=== PATIENT | female | born 1985 | race Caucasian/White ===

== ENCOUNTER 2018-08-18 17:01 | Emergency (ER) | payer OTHER, SELFPAY ==
[~2018-08-18 17:01] MED LIST: ISOVUE-370 76%-LOCM 1 ML ONE
[2018-08-18 18:40] LABS: #Basophils 0.1 thou/uL (0.0-0.2); #Eosinphils 0.1 thou/uL (0.0-0.7); #Lymphocytes 1.6 thou/uL (1.20-3.40); #Monocytes 0.4 thou/uL (0.11-0.59); %Basophils 1.3 % (0.0-1.0); %Eosinophils 1.8 % (0.0-10.0); %Lymphocytes 26.1 % (21.0-51.0); %Monocytes 5.9 % (0.0-10.0); %Neutrophils 64.9 % (42.0-75.0); Hemoglobin 11.2 g/dL (12.0-16.0); Mean Corpuscular HGB CONC 31.1 g/dL (32.0-36.0); Mean Corpuscular Hemoglobin 25.6 pg (27.0-31.0); Mean Corpuscular Volume 82.2 fL (78.0-98.0); Mean Platelet Volume 7.6 fL (7.4-10.4); Platelet Count 273 thou/uL (130-400); RBC Distribution Width 16.9 % (11.5-14.5); Red Blood Cell (RBC) Count 4.37 mill/uL (4.20-5.40); White Blood Cell (WBC) Count 6.2 thou/uL (4.8-10.8)
[2018-08-18 19:05] LABS: ALT (SGPT) 20 U/L (8-55); AST (SGOT) 16 U/L (5-34); Albumin 3.8 g/dL (3.5-5.0); Alkaline Phosphatase 97 U/L (40-150); Anion Gap 10 mmol/L (10-20); BUN (Urea Nitrogen) 14 mg/dL (7.0-18.7); Bilirubin, Total 0.3 mg/dL (0.2-1.2); Calc. Creatinine Clearance 0 mL/min (70-130); Carbon Dioxide 29 mmol/L (22-29); Chloride 105 mmol/L (98-107); Estimated GFR-MDRD 80; Globulin 3.8 g/dL (2.4-3.5); Glucose 110 mg/dL (70-105); Potassium 3.4 mmol/L (3.5-5.1); Protein, Total 7.6 g/dL (6.0-8.3); Sodium 141 mmol/L (136-145)
[2018-08-18 20:26] LABS: PTT 28.2 SEC (22.9-36.1); Prothrombin Time 12.9 SEC (12.0-14.7)
[2018-08-18 20:34] LABS: CKMB 0.5 ng/mL (0-6.6); Troponin I Less than 0.010 ng/mL (< 0.028)
--- NOTE | 2018-08-18 22:05 | CT ---
CONTRAST ENHANCED CT IMAGES ABDOMEN AND PELVIS 08/18/18 HISTORY: Rectal bleeding. Contrast enhanced CT images of the abdomen and pelvis is obtained after administration of IV contrast . Unfortunately oral contrast was not given. This does decrease the sensitivity for detection of GI p athology. The lung bases are unremarkable. No evidence of free intraperitoneal air seen. The liver, spleen, and pancreas are unremarkable. The g allbladder has been surgically removed. The adrenal glands are unremarkable. The right and left kidneys are unremarkable. No dilated loops of small bowel seen. The colon contains moderate amount of stool. The uterus is somewhat heterogeneous in appearance. There may be some fullness in the region of the c ervix. Correlate with clinical exam. Cervical pathology cannot be excluded. IMPRESSION: Fullness in the region of the uterine cervix. Correlate with clinical exam. POS: [facility]
--- NOTE | 2018-08-18 22:39 | CT ---
CTA CHEST 08/18/18 HISTORY: History of pulmonary emboli, dyspnea. Contrast enhanced CTA of the chest is performed. Comparison made to a previous exam from 08/23/13. Contrast enhanced CTA chest is obtained. 2D and 3D reconstruction images performed on an independent 3D workstation. The lung parenchyma is unremarkable with no evidence of masses or lesions seen. No evidence of pleural or pericardial effusions seen. No evidence of filling defects seen in the pulmonary arteries to suggest pulmonary emboli. The liver and spleen in the visualized portions is unremarkable. The mediastinum demonstrates no evidence of significant lymphadenopathy; however, there is a newly de veloped approximately 2.8 x 1.9 cm oval shaped density. Hounsfield measurement of approximately 13. T his may represent a small cyst in the superior mediastinal/aortopulmonary window region or may repres ent a possible developing mass. This area was not present on the previous exam. IMPRESSION: Newly developed left periaortic fluid density lesion, unknown clinical significance. This was not pre sent on the previous comparison CTA chest form 2012. POS: [facility]
[2018-08-18] MEDS ORDERED: Acetaminophen 500 MG TAB ONE (22:48)
[2018-08-18] MEDS ORDERED: Morphine 4 MG/ML VIAL ONE (22:48)
[2018-08-19] MEDS ORDERED: cefTRIAXone\\ROCEPHIN 1 GM VIAL ONE (00:01)
[2018-08-19] MEDS ORDERED: Azithromycin 250 MG TAB ONE (00:01)
[2018-08-21 21:00] LABS: Chlamydia by PCR Inconclusive (NotDetected); GC by PCR Inconclusive (NotDetected)
== END 2018-08-19 00:27 | disposition home or self-care (01) ==
LOC: ERS 17:01
DX: K64.8 Other hemorrhoids (principal); K64.4 Residual hemorrhoidal skin tags
CPT/HCPCS: 36415; 71275; 74177; 80053; 82553; 84484; 84702; 85025; 85610; 85730; 86850; 86900; 86901; 87480; 87491; 87510; 87591; 87660; 93005; 96374; 96375; 96376; J0696; J2270

== ENCOUNTER 2018-09-07 16:37 | Emergency (ER) | payer SELFPAY ==
[2018-09-07 17:02] LABS: Bacteria/HPF Rare-Few HPF (None Seen); Hyaline Casts/LPF 0-3 HYALINE CAST LPF (0-3 Hyaline); Pathc Cast-AUWi Flag 0.43 (0-2.49); Squamous Epithelial 0-3 HPF (0-3)
[2018-09-07 17:05] LABS: Yeast-AUWi Flag 412.4 (0-25.0)
[2018-09-07 17:06] LABS: Clarity Hazy (Clear); Leukocyte Unable to Interpret (Negative); Nitrite Unable to Interpret (Negative); Protein, Urine (Dipstick) Unable to Interpret mg/dL (Neg-Trace); Specific Gravity, Urine 1.022 (1.002-1.036)
[2018-09-07 17:07] LABS: Bilirubin Unable to Interpret (Negative); Blood, Urine Unable to Interpret (Negative); Glucose, Urine (Dipstick) Unable to Interpret mg/dL (Negative); Urobilinogen UNABLE TO INTERPRET mg/dL (0.2-1.0)
[2018-09-07 17:13] LABS: Yeast-All Forms None Seen HPF (None Seen)
[2018-09-07 17:28] LABS: Pregnancy Test - Urine (BHCG) Negative (Negative); Pregu Control Background? CLEAR/WHITE (CLR/WHITE); Pregu Control Bar Appear? YES (CONTROL BAR); Specific Gravity 1.022 (1.002-1.036)
[2018-09-07] MEDS ORDERED: HYDROcodone/Acetaminophen 10/325 mg Tablet ONE (17:31)
== END 2018-09-07 18:14 | disposition home or self-care (01) ==
LOC: ERS 16:37
DX: N39.0 Urinary tract infection, site not specified (principal)
CPT/HCPCS: 81003; 81015; 81025; 99283

== ENCOUNTER 2018-10-10 08:38 | Emergency (ER) | payer OTHER, SELFPAY ==
[2018-10-10] MEDS ORDERED: Acetaminophen 500 MG TAB ONE (08:55)
[2018-10-10 09:05] LABS: #Eosinphils 0.1 thou/uL (0.0-0.7); #Lymphocytes 1.5 thou/uL (1.20-3.40); #Monocytes 0.5 thou/uL (0.11-0.59); #Neutrophils 3.4 thou/uL (1.40-6.50); %Basophils 0.3 % (0.0-1.0); %Eosinophils 1.9 % (0.0-10.0); %Lymphocytes 26.4 % (21.0-51.0); %Monocytes 9.5 % (0.0-10.0); %Neutrophils 61.9 % (42.0-75.0); Hemoglobin 12.2 g/dL (12.0-16.0); Mean Corpuscular HGB CONC 31.5 g/dL (32.0-36.0); Mean Corpuscular Hemoglobin 27.4 pg (27.0-31.0); Mean Corpuscular Volume 86.9 fL (78.0-98.0); Mean Platelet Volume 6.2 fL (7.4-10.4); Platelet Count 260 thou/uL (130-400); RBC Distribution Width 14.7 % (11.5-14.5); Red Blood Cell (RBC) Count 4.46 mill/uL (4.20-5.40); White Blood Cell (WBC) Count 5.5 thou/uL (4.8-10.8)
[2018-10-10 09:14] LABS: BHCG - Serum Negative (NEGATIVE); Pregs Control Background? CLEAR/WHITE (CLR/WHITE); Pregs Control Bar Appear? YES (CONTROL BAR)
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
[2018-10-10 09:27] LABS: ALT (SGPT) 49 U/L (8-55); AST (SGOT) 18 U/L (5-34); Albumin 3.8 g/dL (3.5-5.0); Alkaline Phosphatase 116 U/L (40-150); Anion Gap 11 mmol/L (10-20); BUN (Urea Nitrogen) 15 mg/dL (7.0-18.7); Bilirubin, Total 0.3 mg/dL (0.2-1.2); Calc. Creatinine Clearance 0 mL/min (70-130); Calcium 8.6 mg/dL (7.8-10.44); Carbon Dioxide 23 mmol/L (22-29); Chloride 106 mmol/L (98-107); Estimated GFR-MDRD 83; Globulin 3.4 g/dL (2.4-3.5); Glucose 97 mg/dL (70-105); Lipase 46 U/L (8-78); Potassium 3.9 mmol/L (3.5-5.1); Protein, Total 7.2 g/dL (6.0-8.3); Sodium 136 mmol/L (136-145)
--- NOTE | 2018-10-10 10:05 | CT ---
CT CERVICAL SPINE: Date: 10-10-18 Provided Clinical History: Trauma. FINDINGS: No evidence for fracture or traumatic subluxation. No prevertebral soft tissue swelling is apparent. The visualized lung apices appear clear. IMPRESSION: No evidence for fracture or traumatic subluxation. POS: [facility]
--- NOTE | 2018-10-10 10:06 | CT ---
CT BRAIN: DATE: 10/10/2018. PROVIDED CLINICAL HISTORY: Trauma. FINDINGS: The ventricular system appears normal in size and morphology. There is no evidence for intracranial hemorrhage or mass effect. The extracranial soft tissues and osseous structures demonstrate no acute findings. IMPRESSION: No evidence for intracranial hemorrhage or mass effect. POS: [facility]
[2018-10-10] MEDS ORDERED: Ketorolac Tromethamine 60 MG/2 ML VIAL ONE (10:32)
== END 2018-10-10 10:59 | disposition home or self-care (01) ==
LOC: ERS 08:38
DX: M79.10 Myalgia, unspecified site (principal); V89.2XXA Person injured in unspecified motor-vehicle accident, traffic, initial encounter
CPT/HCPCS: 36415; 70450; 71045; 72125; 72170; 80053; 83690; 84703; 85025; 96372; J1885

== ENCOUNTER 2018-10-31 17:26 | Emergency (ER) | payer OTHER, SELFPAY ==
[~2018-10-31 17:26] MED LIST changes: -ISOVUE-370 76%-LOCM 1 ML ONE; +Iopamidol 370 76% 100 ML VIAL ONE
--- NOTE | 2018-10-31 18:19 | RAD ---
RADIOGRAPH CHEST 1 VIEW: HISTORY: 33-year-old female with chest pain. FINDINGS: There are no air space densities, pulmonary edema, pneumothorax, or cardiomegaly. The lateral costop hrenic angles are sharp. IMPRESSION: No acute cardiopulmonary findings. yaya [] POS: [facility]
[2018-10-31] MEDS ORDERED: Fentanyl 100 MCG/2 ML VIAL ONE (18:20)
[2018-10-31 18:30] LABS: #Basophils 0.1 thou/uL (0.0-0.2); #Eosinphils 0.1 thou/uL (0.0-0.7); #Lymphocytes 2.1 thou/uL (1.20-3.40); #Monocytes 0.6 thou/uL (0.11-0.59); #Neutrophils 4.6 thou/uL (1.40-6.50); %Basophils 1.4 % (0.0-1.0); %Eosinophils 1.8 % (0.0-10.0); %Lymphocytes 28.1 % (21.0-51.0); %Monocytes 8.4 % (0.0-10.0); %Neutrophils 60.4 % (42.0-75.0); Hemoglobin 12.3 g/dL (12.0-16.0); Mean Corpuscular HGB CONC 32.5 g/dL (32.0-36.0); Mean Corpuscular Hemoglobin 27.6 pg (27.0-31.0); Mean Corpuscular Volume 84.9 fL (78.0-98.0); Mean Platelet Volume 6.7 fL (7.4-10.4); Platelet Count 278 thou/uL (130-400); RBC Distribution Width 14.1 % (11.5-14.5); Red Blood Cell (RBC) Count 4.46 mill/uL (4.20-5.40); White Blood Cell (WBC) Count 7.6 thou/uL (4.8-10.8)
[2018-10-31 18:31] LABS: Bilirubin Negative (Negative); Blood, Urine Negative (Negative); Clarity CLEAR (Clear); Glucose, Urine (Dipstick) Negative (Negative); Leukocyte Trace (Negative); Nitrite Negative (Negative); Protein, Urine (Dipstick) Negative (Neg-Trace); Specific Gravity, Urine 1.008 (1.002-1.036); Urobilinogen 0.2 mg/dL (0.2-1.0)
[2018-10-31 18:32] LABS: Bacteria/HPF None Seen HPF (None Seen); Hyaline Casts/LPF 0-3 HYALINE CAST LPF (0-3 Hyaline); Pathc Cast-AUWi Flag 0.29 (0-2.49); RBC/HPF 0-3 HPF (0-3)
[2018-10-31 18:33] LABS: Pregnancy Test - Urine (BHCG) Negative (Negative); Pregu Control Background? CLEAR/WHITE (CLR/WHITE); Pregu Control Bar Appear? YES (CONTROL BAR); Specific Gravity 1.008 (1.002-1.036)
[2018-10-31 18:34] LABS: BHCG - Serum Negative (NEGATIVE); Pregs Control Background? CLEAR/WHITE (CLR/WHITE); Pregs Control Bar Appear? YES (CONTROL BAR)
[2018-10-31 18:42] LABS: ALT (SGPT) 21 U/L (8-55); AST (SGOT) 13 U/L (5-34); Albumin 4.2 g/dL (3.5-5.0); Alkaline Phosphatase 114 U/L (40-150); Anion Gap 10 mmol/L (10-20); BUN (Urea Nitrogen) 21 mg/dL (7.0-18.7); Bilirubin, Total 0.3 mg/dL (0.2-1.2); CK (CPK) 56 U/L (29-168); Calc. Creatinine Clearance 0 mL/min (70-130); Calcium 9.6 mg/dL (7.8-10.44); Carbon Dioxide 29 mmol/L (22-29); Chloride 102 mmol/L (98-107); Estimated GFR-MDRD 74; Globulin 4.1 g/dL (2.4-3.5); Glucose 94 mg/dL (70-105); Lipase 62 U/L (8-78); Potassium 3.7 mmol/L (3.5-5.1); Protein, Total 8.3 g/dL (6.0-8.3); Sodium 137 mmol/L (136-145)
[2018-10-31 18:48] LABS: CKMB 0.6 ng/mL (0-6.6); Troponin I Less than 0.010 ng/mL (< 0.028)
--- NOTE | 2018-10-31 20:47 | CT ---
CT ANGIO CHEST PERFORMED WITH INTRAVENOUS CONTRAST ENHANCEMENT AND 3D RECONSTRUCTIONS: HISTORY: Chest pain. History of PE. COMPARISON: Study from 08/18/2018. Review is also made of a 08/23/2013 study. FINDINGS: The lungs show some minimal ground glass opacity to the lung angelo. There are no pleural effusions identified. No infiltrative process. No pulmonary nodules. There is no significant mediastinal or hilar adenopathy. The cystic density seen in the prevascular space, along the lateral side of the aortic arch, is again demonstrated. It is stable in size at ludivina roximately 2.9 cm. It, once again, shows fluid density numbers. The thoracic aorta is normal in caliber. There is fairly good pulmonary arterial opacification ob[place]i ch[place]. Smaller peripheral emboli cannot be excluded. There is no CT evidence for pulmonary embolus. The gallbladder has been removed. The visualized liver parenchyma is normal. IMPRESSION: 1. No CT evidence for pulmonary embolus. 2. Stable cystic appearing density within the prevascular space, adjacent to the aortic arch. POS: [facility]
== END 2018-10-31 19:38 | disposition home or self-care (01) ==
LOC: ERS 17:26
DX: R07.9 Chest pain, unspecified (principal)
CPT/HCPCS: 71045; 71275; 80053; 81003; 81015; 81025; 82553; 83690; 83880; 84484; 84703; 85025; 85379; 93005; 96361; 96374; J3010

== ENCOUNTER 2018-12-14 07:52 | Emergency (ER) | payer OTHER, SELFPAY | END 2018-12-14 08:47 | disposition home or self-care (01) | LOC: ERS 07:52 | DX: L03.213 Periorbital cellulitis (principal) | CPT/HCPCS: 99283 ==

== ENCOUNTER 2018-12-21 11:29 | Emergency (ER) | payer SELFPAY ==
[2018-12-21] MEDS ORDERED: Dexamethasone 10 MG/ML VIAL ONE (13:00)
== END 2018-12-21 13:20 | disposition home or self-care (01) ==
LOC: ERS 11:29
DX: J02.9 Acute pharyngitis, unspecified (principal); H10.9 Unspecified conjunctivitis
CPT/HCPCS: 87081; 87430; 99283; J1100

== ENCOUNTER 2019-01-18 08:23 | Emergency (ER) | payer OTHER, SELFPAY ==
[2019-01-18 08:53] LABS: Bilirubin Negative (Negative); Blood, Urine Small (Negative); Clarity CLEAR (Clear); Glucose, Urine (Dipstick) Negative (Negative); Leukocyte Small (Negative); Nitrite Negative (Negative); Protein, Urine (Dipstick) Trace mg/dL (Neg-Trace); Specific Gravity, Urine 1.028 (1.002-1.036); Urobilinogen 0.2 mg/dL (0.2-1.0); pH, Urine 5.5 (5.0-9.0)
[2019-01-18 08:55] LABS: Bacteria/HPF None Seen HPF (None Seen); Hyaline Casts/LPF 0-3 HYALINE CAST LPF (0-3 Hyaline)
[2019-01-18 08:59] LABS: Pregnancy Test - Urine (BHCG) Negative (Negative); Pregu Control Background? CLEAR/WHITE (CLR/WHITE); Pregu Control Bar Appear? YES (CONTROL BAR); Specific Gravity 1.028 (1.002-1.036)
[2019-01-18 09:05] LABS: Renal Epithelial None Seen HPF (0-3); Transitional Epithelial NONE SEEN HPF (0-3)
[2019-01-18 09:11] LABS: #Eosinphils 0.1 thou/uL (0.0-0.7); #Lymphocytes 1.5 thou/uL (1.20-3.40); #Monocytes 0.5 thou/uL (0.11-0.59); %Basophils 0.7 % (0.0-1.0); %Eosinophils 2.2 % (0.0-10.0); %Lymphocytes 24.5 % (21.0-51.0); %Monocytes 7.8 % (0.0-10.0); %Neutrophils 64.7 % (42.0-75.0); Hemoglobin 12.1 g/dL (12.0-16.0); Mean Corpuscular HGB CONC 30.7 g/dL (32.0-36.0); Mean Corpuscular Hemoglobin 26.8 pg (27.0-31.0); Mean Corpuscular Volume 87.4 fL (78.0-98.0); Mean Platelet Volume 6.5 fL (7.4-10.4); Platelet Count 290 thou/uL (130-400); RBC Distribution Width 13.3 % (11.5-14.5); Red Blood Cell (RBC) Count 4.49 mill/uL (4.20-5.40); White Blood Cell (WBC) Count 6.1 thou/uL (4.8-10.8)
[2019-01-18 09:22] LABS: ALT (SGPT) 18 U/L (8-55); AST (SGOT) 16 U/L (5-34); Albumin 3.9 g/dL (3.5-5.0); Alkaline Phosphatase 94 U/L (40-150); Anion Gap 12 mmol/L (10-20); BUN (Urea Nitrogen) 18 mg/dL (7.0-18.7); Bilirubin, Total 0.4 mg/dL (0.2-1.2); Calc. Creatinine Clearance 0 mL/min (70-130); Calcium 9.4 mg/dL (7.8-10.44); Carbon Dioxide 27 mmol/L (22-29); Chloride 102 mmol/L (98-107); Estimated GFR-MDRD 84; Globulin 3.5 g/dL (2.4-3.5); Glucose 122 mg/dL (70-105); Lipase 34 U/L (8-78); Potassium 3.8 mmol/L (3.5-5.1); Protein, Total 7.4 g/dL (6.0-8.3); Sodium 137 mmol/L (136-145)
[2019-01-18] MEDS ORDERED: Morphine 10 MG/ML VIAL ONE (09:36)
[2019-01-18] MEDS ORDERED: Ondansetron ODT 8 MG TAB ONE (09:36)
[2019-01-18] MEDS ORDERED: Promethazine 25 MG TAB ONE (11:33)
== END 2019-01-18 11:37 | disposition home or self-care (01) ==
LOC: ERS 08:23
DX: N83.209 Unspecified ovarian cyst, unspecified side (principal); Z86.711 Personal history of pulmonary embolism
CPT/HCPCS: 36415; 80053; 81003; 81015; 81025; 83690; 85025; 85379; 96372; J2270; Q0169

== ENCOUNTER 2019-01-26 12:54 | Emergency (ER) | payer SELFPAY ==
[~2019-01-26 12:54] MED LIST changes: +ISOVUE-370 76%-LOCM 1 ML ONE; -Iopamidol 370 76% 100 ML VIAL ONE
[2019-01-26] MEDS ORDERED: Ondansetron ODT 4 MG TAB ONE (13:33)
[2019-01-26 13:39] LABS: Bilirubin Negative (Negative); Blood, Urine Moderate (Negative); Clarity CLEAR (Clear); Glucose, Urine (Dipstick) Negative (Negative); Leukocyte Small (Negative); Nitrite Negative (Negative); Protein, Urine (Dipstick) Negative (Neg-Trace); Specific Gravity, Urine 1.024 (1.002-1.036); Urobilinogen 0.2 mg/dL (0.2-1.0)
[2019-01-26 13:40] LABS: Bacteria/HPF None Seen HPF (None Seen); Hyaline Casts/LPF 0-3 HYALINE CAST LPF (0-3 Hyaline); Pathc Cast-AUWi Flag 0.58 (0-2.49)
[2019-01-26] MEDS ORDERED: Ketorolac Tromethamine 30 MG/ML VIAL ONE (13:41)
[2019-01-26 13:44] LABS: Renal Epithelial None Seen HPF (0-3); Transitional Epithelial NONE SEEN HPF (0-3)
[2019-01-26 13:48] LABS: #Basophils 0.1 thou/uL (0.0-0.2); #Lymphocytes 0.3 thou/uL (1.20-3.40); #Monocytes 0.4 thou/uL (0.11-0.59); #Neutrophils 7.2 thou/uL (1.40-6.50); %Basophils 1.2 % (0.0-1.0); %Eosinophils 0.6 % (0.0-10.0); %Lymphocytes 3.6 % (21.0-51.0); %Monocytes 4.8 % (0.0-10.0); %Neutrophils 89.8 % (42.0-75.0); Hemoglobin 13.5 g/dL (12.0-16.0); Mean Corpuscular HGB CONC 32.1 g/dL (32.0-36.0); Mean Corpuscular Hemoglobin 27.8 pg (27.0-31.0); Mean Corpuscular Volume 86.5 fL (78.0-98.0); Mean Platelet Volume 6.5 fL (7.4-10.4); Platelet Count 292 thou/uL (130-400); RBC Distribution Width 13.3 % (11.5-14.5); Red Blood Cell (RBC) Count 4.84 mill/uL (4.20-5.40)
--- NOTE | 2019-01-26 14:00 | RAD ---
SINGLE VIEW CHEST: Date: 01/26/19 COMPARISON: 10/31/18. HISTORY: Lower abdominal pain. History of ovarian cysts. Vaginal bleeding for 11 days. Fever. FINDINGS: Single view of the chest shows a normal sized cardiomediastinal silhouette. There is no evidence of c onsolidation, mass, or pleural effusion. The bones are unremarkable. IMPRESSION: No evidence of acute cardiopulmonary disease. POS: [facility]
[2019-01-26 14:12] LABS: ALT (SGPT) 13 U/L (8-55); AST (SGOT) 14 U/L (5-34); Albumin 4.2 g/dL (3.5-5.0); Alkaline Phosphatase 105 U/L (40-150); Anion Gap 13 mmol/L (10-20); BUN (Urea Nitrogen) 18 mg/dL (7.0-18.7); Calc. Creatinine Clearance 0 mL/min (70-130); Calcium 9.1 mg/dL (7.8-10.44); Carbon Dioxide 25 mmol/L (22-29); Chloride 102 mmol/L (98-107); Estimated GFR-MDRD 84; Globulin 3.9 g/dL (2.4-3.5); Glucose 110 mg/dL (70-105); Potassium 3.7 mmol/L (3.5-5.1); Protein, Total 8.1 g/dL (6.0-8.3); Sodium 136 mmol/L (136-145)
[2019-01-26] MEDS ORDERED: Morphine 4 MG/ML VIAL ONE ×2 (14:54→17:07)
[2019-01-26 15:36] LABS: BHCG - Serum Negative (NEGATIVE); Pregs Control Background? CLEAR/WHITE (CLR/WHITE); Pregs Control Bar Appear? YES (CONTROL BAR)
--- NOTE | 2019-01-26 15:37 | ULT ---
TRANSABDOMINAL AND TRANSVAGINAL PELVIC ULTRASOUND: Date: 01/26/19 INDICATION: History of pelvic pain. TECHNIQUE: Cerna scale, color Doppler, and spectral Doppler images were obtained of the pelvis via transabdominal and transvaginal approach. FINDINGS: Uterus measures 10.0 x 5.1 x 6.6 cm. Endometrial stripe measures 1.0 cm. IUD is seen within the centr al aspect of the endometrial canal. Right ovary measures 4.6 x 3.3 x 4.5 cm. Left ovary measures 3.5 x 2.2 x 2.1 cm. There is a 4.[address] within the right ovary and a 2.5 cm cyst is seen within the left ovary. Normal flow is seen to bot h ovaries. No free fluid is evident. IMPRESSION: Bilateral follicular cysts. IUD POS: [facility]
--- NOTE | 2019-01-26 16:17 | CT ---
CONTRAST ENHANCED CT IMAGES ABDOMEN AND PELVIS: 01/26/19 HISTORY: Abdominal pain. Vaginal bleeding for eleven days. Contrast enhanced CT images of the abdomen and pelvis is obtained after administration of IV contrast . The lung bases are unremarkable. No evidence of free intraperitoneal air seen. The liver and spleen are unremarkable. The gallbladder has been surgically removed. The pancreas is unremarkable. Adrenal glands and kidneys are unremarkable. The small bowel in the proximal portion appears to be somewhat thickened and possibly edematous alex rning for enteritis. The appendix definitively is not visualized. The colon demonstrates no significa nt distention. Intrauterine device is seen. Bilateral ovarian cysts seen. The right ovary is enlarged measuring approximately 3.7 x 3.0 cm. Small er left ovary is seen. IMPRESSION: Proximal small bowel thickening and mild distention concerning for enteritis. POS: [facility]
[2019-01-26] MEDS ORDERED: cefTRIAXone\\ROCEPHIN 250 MG VIAL ONE (17:24)
[2019-01-26] MEDS ORDERED: Azithromycin 250 MG TAB ONE (17:24)
== END 2019-01-26 17:37 | disposition home or self-care (01) ==
LOC: ERS 12:54
DX: N73.9 Female pelvic inflammatory disease, unspecified (principal); I10 Essential (primary) hypertension; Z86.711 Personal history of pulmonary embolism
CPT/HCPCS: 36415; 71045; 74177; 76856; 80053; 81003; 81015; 83605; 84703; 85025; 87040; 87086; 87480; 87491; 87510; 87591; 87660; 87804; 94760; 96361; 96374; 96375; 96376; J0696; J1885; J2270; Q0162; Q9966

== ENCOUNTER 2019-02-20 09:37 | Outpatient (CLI) | payer MEDICAID ==
--- NOTE | 2019-02-20 12:55 | ULT ---
PELVIC ULTRASOUND: DATE: 02/20/2019. COMPARISON: None. HISTORY: A 33-year-old female with vaginal bleeding. TECHNIQUE: Multiplanar, flower scale sonographic imaging of the pelvis obtained with transabdominal and endovagina l imaging. Adnexal regions are assessed with color flow and spectral analysis. FINDINGS: The uterus measures 8.2 x 4.2 x 4.6 cm. An IUD is present within the endometrial canal. Presence of the IUD limits detailed measurement of the endometrial stripe. No distress endometrial thickness is seen, the endometrium estimated at 5 mm in thickness. No uterine mass identified. There is trace f ree fluid in the pelvic cul-de-sac. The left ovary could not be visualized on transabdominal or endo vaginal imaging. The right ovary is seen on transabdominal imaging and measures 3.8 x 1.3 x 2.8 cm d emonstrating normal blood flow. Incidental note made of a 1.1 cm follicle within the right ovary. IMPRESSION: No acute findings. Please see above discussion. POS: [facility]
== END 2019-02-20 09:38 | disposition home or self-care (01) ==
LOC: BICULT 09:37
PROVIDERS: ATTEND Nurse Practitioner Family
DX: N93.9 Abnormal uterine and vaginal bleeding, unspecified (principal)
CPT/HCPCS: 76856

== ENCOUNTER 2019-05-17 08:56 | Emergency (ER) | payer MEDICAID ==
[2019-05-17 09:24] LABS: #Eosinphils 0.1 thou/uL (0.0-0.7); #Lymphocytes 1.4 thou/uL (1.20-3.40); #Monocytes 0.5 thou/uL (0.11-0.59); #Neutrophils 4.6 thou/uL (1.40-6.50); %Basophils 0.5 % (0.0-1.0); %Eosinophils 1.3 % (0.0-10.0); %Lymphocytes 21.3 % (21.0-51.0); %Monocytes 6.8 % (0.0-10.0); Hemoglobin 11.1 g/dL (12.0-16.0); Mean Corpuscular HGB CONC 32.7 g/dL (32.0-36.0); Mean Corpuscular Hemoglobin 26.6 pg (27.0-31.0); Mean Corpuscular Volume 81.5 fL (78.0-98.0); Platelet Count 282 thou/uL (130-400); RBC Distribution Width 13.8 % (11.5-14.5); Red Blood Cell (RBC) Count 4.16 mill/uL (4.20-5.40); White Blood Cell (WBC) Count 6.6 thou/uL (4.8-10.8)
[2019-05-17] MEDS ORDERED: ISOVUE-370 76%-LOCM 1 ML ONE (09:48)
[2019-05-17 10:02] LABS: Clarity Clear (Clear); Leukocyte Trace (Negative); Specific Gravity, Urine 1.015 (1.005-1.030)
[2019-05-17 10:03] LABS: ALT (SGPT) 10 U/L (8-55); AST (SGOT) 9 U/L (5-34); Albumin 3.8 g/dL (3.5-5.0); Alkaline Phosphatase 79 U/L (40-150); BUN (Urea Nitrogen) 5 mg/dL (7.0-18.7); Bilirubin, Total 0.4 mg/dL (0.2-1.2); Calc. Creatinine Clearance 0 mL/min (70-130); Calcium 9.2 mg/dL (7.8-10.44); Chloride 104 mmol/L (98-107); Estimated GFR-MDRD Greater than 90; Globulin 3.6 g/dL (2.4-3.5); Glucose 89 mg/dL (70-105); Lipase 34 U/L (8-78); Potassium 3.9 mmol/L (3.5-5.1); Protein, Total 7.4 g/dL (6.0-8.3); Sodium 134 mmol/L (136-145)
[2019-05-17 10:03] LABS: Bilirubin Negative (Negative); Blood, Urine Trace (Negative); Glucose, Urine (Dipstick) Negative (Negative); Nitrite Negative (Negative); Protein, Urine (Dipstick) Negative (Neg-Trace); Urobilinogen 0.2 mg/dL (0.2-1.0)
[2019-05-17 10:10] LABS: Bacteria/HPF Rare-Few HPF (None Seen); Hyaline Casts/LPF NONE SEEN LPF (0-3 Hyaline); RBC/HPF 0-3 HPF (0-3); Squamous Epithelial 0-3 HPF (0-3); WBC/HPF 0-3 HPF (0-3)
[2019-05-17 10:17] LABS: Carbon Dioxide 20 mmol/L (22-29)
[2019-05-17 10:22] LABS: Anion Gap 14 mmol/L (10-20)
--- NOTE | 2019-05-17 10:45 | CT ---
CT ANGIOGRAM CHEST WITH 3D RENDERING: HISTORY: Dyspnea, the patient is 9 weeks , history of prior PE, chest pain, and shortness of breath. COMPARISON: 10/31/2018. FINDINGS: No evidence for pulmonary embolism. No mediastinal mass or adenopathy. No pleural effusion or peric ardial effusion. Probable very small hiatal hernia. No acute pulmonary parenchymal process. Visual ized upper abdomen is unremarkable. There is a circumscribed low attenuation focus in the left media stinum adjacent to the aortic arch smaller than on the prior study measuring 1.4 x 2.6 cm where it pr eviously measured 2.2 x 2.9 cm, evidence for a benign nonaggressive process. IMPRESSION: No CT evidence for acute pulmonary embolism. A small stable actually decreasing circumscribed low-at tenuation mass in the left superior mediastinum adjacent to the aortic arch. POS: [facility]
--- NOTE | 2019-05-17 11:21 | ULT ---
PELVIC ULTRASOUND WITH DOPPLER: HISTORY: Pain. COMPARISON: Transvaginal ultrasound from 02/20/2019. TECHNIQUE: Real-time, flower-scale, color Doppler, and spectral analysis of the pelvis was performed with a transa bdominal approach. FINDINGS: A single viable intrauterine with average ultrasound age 10 weeks 0 days and estimated date of delivery 12/13/2009. [place]-rump length is 3.11 cm (10 weeks 0 days). Gestational sac diameter i s 4.44 cm (9 weeks 6 days). Yolk sac measures 0.42 cm. heart rate is documented at 173 beats per minute. Both ovaries have adequate vascular flow. There is a corpus luteal cyst of the left ova ry. IMPRESSION: Normal single viable intrauterine . POS: [facility]
[2019-05-17] MEDS ORDERED: Acetaminophen 500 MG TAB ONE (11:54)
== END 2019-05-17 11:57 | disposition home or self-care (01) ==
LOC: ERS 08:56
DX: O99.89 Other specified diseases and conditions complicating pregnancy, childbirth and the puerperium (principal); R06.02 Shortness of breath; Z3A.09 9 weeks gestation of pregnancy
CPT/HCPCS: 36415; 71275; 76856; 80053; 81003; 81015; 83690; 84702; 85025; 86900; 86901; 93005; 93976; Q9966

== ENCOUNTER 2019-07-26 10:44 | Outpatient (CLI) | payer OTHER ==
--- NOTE | 2019-07-26 15:13 | ULT ---
OB ULTRASOUND: HISTORY: anatomy. FINDINGS: A single live intrauterine gestation is seen with measurements corresponding to an estimated gestatio nal age of 20 weeks 0 days and CARMEN at 12/13/2019. The estimated weight measures 345 gm or 12 ou nces (94% by Hadlock criteria). measurements are as follows: BPD 4.44 cm, 19 weeks 3 days HC 17.50 cm, 20 weeks 0 days AC 14.61 cm, 19 weeks 6 days FL 3.46 cm, 20 weeks 6 days heart rate measures 153 b.p.m. SAW measures 12.1 cm. Placenta is anteriorly located without e vidence of placenta previa. A 3-vessel cord, cord insertion, kidneys, bladder, stomach, 4-chamber heart, lateral ventricles , cerebellum, bladder, spine, lips/nose, upper and lower extremities are visualized. No definite fet al anomalies are seen. IMPRESSION: Single live intrauterine of 20 weeks estimated gestational age and estimated date of delive ry at 12/13/2019. POS: [facility]
== END 2019-07-26 10:45 | disposition home or self-care (01) ==
LOC: SCSULT 10:44
PROVIDERS: ATTEND Obstetrics & Gynecology
DX: O09.92 Supervision of high risk pregnancy, unspecified, second trimester (principal); Z3A.20 20 weeks gestation of pregnancy
CPT/HCPCS: 36415; 76805; 80053; 81003; 81015; 83690; 84703; 85025; 87086; J2270

== ENCOUNTER 2019-07-26 20:39 | Emergency (ER) | payer OTHER ==
[2019-07-26] MEDS ORDERED: Acetaminophen 325 MG TAB ONE (21:18)
[2019-07-26 21:47] LABS: Bacteria/HPF 3+ HPF (None Seen); Bilirubin Negative (Negative); Blood, Urine Negative (Negative); Clarity Clear (Clear); Glucose, Urine (Dipstick) Normal (Negative); Leukocyte Negative Leu/uL (Negative); Mucous/LPF 1+ LPF (<2+); Nitrite Negative (Negative); Protein, Urine (Dipstick) 30 mg/dL (Neg-Trace); Urobilinogen Normal mg/dL (Less than 2)
[2019-07-26 23:35] LABS: #Eosinphils 0.1 thou/uL (0.0-0.7); #Lymphocytes 2.4 thou/uL (1.20-3.40); #Monocytes 0.6 thou/uL (0.11-0.59); #Neutrophils 4.6 thou/uL (1.40-6.50); %Basophils 0.2 % (0.0-1.0); %Eosinophils 0.7 % (0.0-10.0); %Lymphocytes 31.2 % (21.0-51.0); %Monocytes 7.5 % (0.0-10.0); %Neutrophils 60.3 % (42.0-75.0); Hemoglobin 9.7 g/dL (12.0-16.0); Mean Corpuscular HGB CONC 33.2 g/dL (32.0-36.0); Mean Corpuscular Volume 84.4 fL (78.0-98.0); Mean Platelet Volume 6.5 fL (7.4-10.4); Platelet Count 248 thou/uL (130-400); RBC Distribution Width 14.3 % (11.5-14.5); Red Blood Cell (RBC) Count 3.47 mill/uL (4.20-5.40); White Blood Cell (WBC) Count 7.7 thou/uL (4.8-10.8)
[2019-07-26 23:43] LABS: BHCG - Serum POSITIVE (NEGATIVE); Pregs Control Background? CLEAR/WHITE (CLR/WHITE); Pregs Control Bar Appear? YES (CONTROL BAR)
[2019-07-26 23:56] LABS: ALT (SGPT) 13 U/L (8-55); AST (SGOT) 11 U/L (5-34); Albumin 3.4 g/dL (3.5-5.0); Alkaline Phosphatase 82 U/L (40-150); Anion Gap 11 mmol/L (10-20); BUN (Urea Nitrogen) 10 mg/dL (7.0-18.7); Bilirubin, Total 0.3 mg/dL (0.2-1.2); Calc. Creatinine Clearance 0 mL/min (70-130); Calcium 9.1 mg/dL (7.8-10.44); Carbon Dioxide 23 mmol/L (22-29); Chloride 105 mmol/L (98-107); Estimated GFR-MDRD Greater than 90; Globulin 3.5 g/dL (2.4-3.5); Glucose 85 mg/dL (70-105); Lipase 60 U/L (8-78); Potassium 3.4 mmol/L (3.5-5.1); Protein, Total 6.9 g/dL (6.0-8.3); Sodium 136 mmol/L (136-145)
[2019-07-27] MEDS ORDERED: Morphine 4 MG/ML VIAL ONE (01:32)
== END 2019-07-27 02:04 | disposition home or self-care (01) ==
LOC: ERS 20:39
DX: O99.89 Other specified diseases and conditions complicating pregnancy, childbirth and the puerperium (principal); R10.9 Unspecified abdominal pain; O16.2 Unspecified maternal hypertension, second trimester; Z3A.19 19 weeks gestation of pregnancy; Z86.711 Personal history of pulmonary embolism; Z79.899 Other long term (current) drug therapy
CPT/HCPCS: 36415; 80053; 81003; 81015; 83690; 84703; 85025; 87086

== ENCOUNTER 2019-10-06 13:25 | Outpatient (CLI) | payer MEDICAID ==
--- NOTE | 2019-10-06 14:02 | ULT ---
EXAM: OB ultrasound COMPARISON: None HISTORY: female. Evaluate growth. TECHNIQUE: Multiplanar grayscale and color Doppler images were obtained in a transabdominal ult rasound. FINDINGS: There is a single live intrauterine with heart rate of 147 bpm. Estimated weight is 1845 g. Average age of the fetus based off today's examination is 32 weeks 0 days. BPD 7.74 cm -- 31 weeks 1 day HC 29.33 cm -- 32 weeks 3 days AC 27.21 cm -- 31 weeks 3 days FL 6.33 cm -- 32 weeks 6 days The placenta is posterior/fundal in location without focal abnormality. SAW is 19.52 cm which is norm al. The cervix is normal in length. There is no evidence of placenta previa. IMPRESSION: Single live intrauterine with estimated age of 32 weeks 0 days.
== END 2019-10-06 13:26 | disposition home or self-care (01) ==
LOC: BICULT 13:25
PROVIDERS: ATTEND Obstetrics & Gynecology
DX: Z34.83 Encounter for supervision of other normal pregnancy, third trimester (principal); Z3A.32 32 weeks gestation of pregnancy
CPT/HCPCS: 76805

== ENCOUNTER 2019-12-14 12:25 | Inpatient (IN) | payer MEDICAID, OTHER ==
[2019-12-14 13:00] VITALS: BMI 31.4
[2019-12-14] MEDS ORDERED: hydrALAZINE 20 MG/ML VIAL ONE (13:09)
[2019-12-14] MEDS: Lactated Ringer's 1,000 ML IV SCH (13:15)
[2019-12-14] MEDS ORDERED: Ondansetron PF 4 MG/2 ML Vial IVP PRN (13:18)
[2019-12-14] MEDS ORDERED: hydrALAZINE 20 MG/ML VIAL SLOW IVP PRN (13:18)
[2019-12-14] MEDS ORDERED: Calcium Gluconate 4.6 MEQ in Sodium Chloride 0.9% 100 ML IVPB PRN (13:22)
[2019-12-14] MEDS ORDERED: hydrALAZINE 20 MG/ML VIAL SLOW IVP SCH ×2 (13:30→14:45)
[2019-12-14] MEDS ORDERED: Magnesium Sulfate 20 gm/500 ml 20 GM/500 ML BAG IVPB SCH (13:30)
[2019-12-14] MEDS ORDERED: Magnesium Sulfate 20 GM/WATER 500 ML BAG IVPB SCH (13:30)
[2019-12-14 14:03] LABS: PTT 27.6 SEC (22.9-36.1); Prothrombin Time 12.8 SEC (12.0-14.7)
[2019-12-14 14:25] LABS: ALT (SGPT) 9 U/L (8-55); AST (SGOT) 12 U/L (5-34); Albumin 3.7 g/dL (3.5-5.0); Alkaline Phosphatase 117 U/L (40-110); Anion Gap 12 mmol/L (10-20); BUN (Urea Nitrogen) 9 mg/dL (7.0-18.7); Bilirubin, Total 0.5 mg/dL (0.2-1.2); Calc. Creatinine Clearance 167 mL/min (70-130); Calcium 8.7 mg/dL (7.8-10.44); Carbon Dioxide 25 mmol/L (22-29); Chloride 105 mmol/L (98-107); Estimated GFR-MDRD Greater than 90; Globulin 3.8 g/dL (2.4-3.5); Glucose 76 mg/dL (70-105); Magnesium 1.9 mg/dL (1.6-2.6); Potassium 3.8 mmol/L (3.5-5.1); Protein, Total 7.5 g/dL (6.0-8.3); Sodium 138 mmol/L (136-145); Uric Acid 4.2 mg/dL (2.6-6.0)
[2019-12-14 14:28] LABS: #Eosinphils 0.1 thou/uL (0.0-0.7); #Lymphocytes 1.7 thou/uL (1.20-3.40); #Monocytes 0.4 thou/uL (0.11-0.59); #Neutrophils 3.4 thou/uL (1.40-6.50); %Basophils 0.2 % (0.0-1.0); %Lymphocytes 30.5 % (21.0-51.0); %Monocytes 6.5 % (0.0-10.0); %Neutrophils 60.8 % (42.0-75.0); Hemoglobin 9.7 g/dL (12.0-16.0); Mean Corpuscular HGB CONC 29.1 g/dL (32.0-36.0); Mean Corpuscular Hemoglobin 21.7 pg (27.0-31.0); Mean Corpuscular Volume 74.7 fL (78.0-98.0); Mean Platelet Volume 7.6 fL (7.4-10.4); Platelet Count 340 thou/uL (130-400); Red Blood Cell (RBC) Count 4.46 mill/uL (4.20-5.40); White Blood Cell (WBC) Count 5.6 thou/uL (4.8-10.8)
[2019-12-14] MEDS ORDERED: Butorphanol Tartrate 1 MG/ML VIAL SLOW IVP PRN (14:41)
--- NOTE | 2019-12-14 14:44 | ULT ---
EXAM: Bilateral lower extremity venous Doppler US HISTORY: bilateral lower extremity edema and pain FINDINGS: Grayscale, color-flow, Doppler evaluation, spectral analysis of the bilateral lower extremities venou s structures is performed with 2-D imaging. The bilateral common femoral, superficial femoral, popliteal, posterior tibial, proximal greater saphenous and profunda femoral veins are imaged. There is normal luminal compressibility, flow, and augmentation in the visualized deep venous structu res of the bilateral lower extremities. IMPRESSION: No evidence of a deep vein thrombosis in either lower extremity.
[2019-12-14 14:46] LABS: Hypochromia SLIGHT = 6-15 cells (100X) (0-5/hpf); MDiff Complete? YES; Microcytosis SLIGHT = 6-15 cells (100X) (0-5/hpf); Ovalocytes SLIGHT = 2-5 cells (100X) (0-1/hpf); Platelet Morphology Comment Appears Adequate; Polychromasia SLIGHT = 2-3 cells (100X) (0-2/hpf); Schistocytes SLIGHT = 2-5 cells (100X) (0-1/hpf); Tear Drops SLIGHT = 2-5 cells (100X) (0-1/hpf)
[2019-12-14] MEDS ORDERED: NIFEdipine XL 30 MG TAB PO SCH (15:00)
--- NOTE | 2019-12-14 15:31 | CT ---
CT BRAIN WITHOUT CONTRAST: HISTORY: Headache. . Comparison: 10/10/2018 FINDINGS: No evidence of acute infarct, hemorrhage, midline shift or abnormal extra-axial fluid collections is seen. The ventricular size is appropriate and the basilar cisterns are patent. The bony calvarium is intact. The visualized paranasal sinuses and mastoid air cells are well aerated. IMPRESSION: No CT evidence of acute intracranial process.
[2019-12-14] MEDS: Fioricet 325/50/40 mg Tablet PO PRN (18:07)
[2019-12-14] MEDS ORDERED: diphenhydrAMINE 50 MG/ML VIAL IVP SCH (20:30)
[2019-12-14] MEDS: Enoxaparin Sodium 40 MG/0.4 ML SYRINGE SC SCH (20:54)
[2019-12-14] MEDS: Magnesium Sulfate 20 GM in Dextrose 5% in Water 460 ML IV SCH (22:33)
[2019-12-14 23:02] LABS: Medtox Reader # READER 4
[2019-12-14 23:03] LABS: Amphetamine Not Detected (NotDetected); Barbiturates Screen Not Detected (NotDetected); Benzodiazepine Screen Not Detected (NotDetected); Cocaine Metabolite Screen Not Detected (NotDetected); Medtox Control Line Valid? VALID (VALID); Methadone Not Detected (NotDetected); Methamphetamine Not Detected (NotDetected); Opiate Screen Not Detected (NotDetected); Oxycodone Screen Not Detected (NotDetected); Phencyclidine (PCP) Not Detected (NotDetected); THC/Cannabinoid Screen Not Detected (NotDetected); Tricyclic Screen Not Detected (NotDetected)
--- NOTE | 2019-12-15 01:15 | HP ---
PRIMARY OB: Dr. Karan Byrd. CHIEF COMPLAINT: Headache and hypertension. HISTORY OF PRESENT ILLNESS: Patient is a 34-year-old who is about 3 weeks , seen last Seb in the clinic and was noted to have elevated blood pressures. After arriving home out of town, the provider at the office had recommended that she come to the hospital for evaluation given how high her blood pressures were reportedly in the 150s. The patient did not arrive until today. She reports that she has had several days history of headache and just has not been feeling well. She denies any history of chronic hypertension or any history of hypertensive disorder. The patient does have a history of pulmonary embolism and has been on Lovenox 40 b.i.d. for prophylaxis. The patient reports that she had some chest pain and shortness of breath upon arrival. She denies any fever. She denies drug use. She has been reporting headache and chest pain. Denies nausea, vomiting, diarrhea, constipation, hip problems, knee problems, muscle weakness, or any new rashes. She recently was placed on antibiotics for an infection in her tubal incision the day before. PAST MEDICAL HISTORY: PE, ovarian cysts. SURGICAL HISTORY: D and C in 2012. PSYCHIATRIC HISTORY: Negative. SOCIAL HISTORY: Denies drug, alcohol, or tobacco use. CURRENT MEDICATION: Lovenox 40 mg twice a day. ALLERGIES: TRAMADOL. REVIEW OF SYSTEMS: Per HPI. PHYSICAL EXAMINATION: VITAL SIGNS: On arrival, blood pressure was 184/110, heart rate of 58, respiratory rate of 16, saturating 100% on room air, temperature 98.4. GENERAL: She appears to be in no acute distress. She is alert, oriented, cooperative, and pleasant to interact with. HEAD: Normocephalic, atraumatic. LUNGS: Clear to auscultation bilaterally. HEART: Regular rate and rhythm. ABDOMEN: Soft. Her umbilical incision does have an eschar, but on probing, there is no purulence. There is no erythema to the skin edges and no tenderness to palpation. EXTREMITIES: Nontender. She has minimal DTRs. During the course of her evaluation, the patient's blood pressures required a total of 25 mg of hydralazine before they came out of the severe range into the 140s. LABORATORY DATA: White count of 5.6, hemoglobin of 9.7, hematocrit 33.3, and platelets of 340,000. PT is 12.8, INR 1.0, PTT 27.6. Fibrinogen is 497. Sodium 138, potassium 3.8, creatinine 0.73, glucose is 76, uric acid of 4.2, calcium of 8.7, magnesium 1.9. AST of 12, ALT of 9. Urine protein is less than 10. CT of the brain, given the persistent headaches over the last couple of days, shows no acute intracranial process. Dopplers of her lower extremities show no evidence of DVT. The urine drug screen is pending. ASSESSMENT AND PLAN: The patient is a 34-year-old female who is about 3 weeks out coming in for hypertension and noted to have hypertension urgency requiring immediate attention, requiring IV antihypertensive medication for control. The patient has been placed on magnesium for seizure prophylaxis. She has no evidence of stroke and no evidence of hyper-reflexivity. Over the course of the day. The patient has begun having had diuresis with a total of 2300 cc of urine output so far and negative fluid balance since admission of -1705. The patient will stay on magnesium for the next 24 hours. Of note, in reviewing previous encounters in the emergency room, the patient does have a record indicating a history of hypertension and has had other records demonstrating severe range blood pressures. Nonetheless, we will treat the patient as preeclampsia. She has also been started on Procardia XL 30 mg once a day. The patient does report, with her blood pressures coming down, that her chest pain and shortness of breath had resolved. Job ID: [id number]
[2019-12-15] MEDS: Fioricet 325/50/40 mg Tablet PO PRN ×3 (03:13→21:33)
[2019-12-15] MEDS: Lactated Ringer's 1,000 ML IV SCH ×3 (07:35→21:54)
[2019-12-15] MEDS: Cephalexin 250 MG CAP PO SCH ×3 (08:25→21:07)
[2019-12-15] MEDS: Enoxaparin Sodium 40 MG/0.4 ML SYRINGE SC SCH ×2 (08:26→21:08)
[2019-12-15] MEDS: NIFEdipine XL 30 MG TAB PO SCH (08:26)
[2019-12-15] MEDS: Magnesium Sulfate 20 GM in Dextrose 5% in Water 460 ML IV SCH (11:09)
--- NOTE | 2019-12-15 11:55 | PDOC.BPN ---
- Brief Progress Note S: Patient doing well, no complaints today. Asking when she can go home. O: BPs overnight 101-146/56-88, P: 70-80s Gen - AAO, NAD Abd - soft, NTTP A/P: 34 y/o s/p 3 weeks ago who was admitted for PP HTN requiring antihypertensive medications. Was started on MgSO4 and procardia XL and now has mostly normal BPs with occasional mild range. Mag will be discontinued today and we will continue to monitor BPs overnight. Anticipate d/c home tomorrow.
[2019-12-16] MEDS: Lactated Ringer's 1,000 ML IV SCH (04:44)
--- NOTE | 2019-12-16 07:39 | PDOC.PP ---
Addendum entered and electronically signed by Fabián Silva DO 12/16/19 07: 42: Gestational HTN: No proteinuria, NOT preeclampsia. Ok for DC to home. Original Note: Post Progress Note Post Day #: >14 Subjective: 34 yo F presented for elevated BP pp. Rx'd mag. Nifedipine given. Will continue rx. BPs stable and no severe pressures. Pt denies headache, cp, sob, NVDC, epigastric, RUQ pain. PO intake tolerated: yes Flatus: yes Ambulation: yes Vital Signs (12 hours) Temp Pulse Resp BP Pulse Ox 12/16/19 04:52 98.5 F 64 14 126/72 98 12/15/19 23:41 98.4 F 74 14 133/71 97 Weight Weight 96.615 kg - Physical Examination General: NAD Cardiovascular: no m/r/g, RRR Respiratory: clear to auscultation bilaterally, non-labored breathing Abdominal: + bowel sounds, no distention Extremities: negative homans (B) Neurological: no gross focal deficits Psychiatric: normal affect Result Diagrams: 12/14/19 13:30 12/14/19 13:30 (1) Pre-eclampsia, Code(s): O14.95 - UNSPECIFIED PRE-ECLAMPSIA, COMPLICATING THE PUERPERIUM Status: Acute - Assessment/Plan 1) PP pre-e - no severe range pressure >24 hours - plan to DC home with f/u with PCP Dispo: stable, dc to home and continue oral nifedipine Addendum - Attending - Attending Attestation Date/Time: 12/16/19 [id number] I personally evaluated the patient and discussed the management with Dr. Silav. I agree with the History, Examination, Assessment and Plan documented above. BPs normal to mild range. Ok for d/c home.
--- NOTE | 2019-12-16 08:49 | PRG ---
DATE OF SERVICE: 12/16/2019 TIME: 0823 hours. Please label this PU[employer]ER on-call. In brief, I just assumed call from Dr. Atkins and reviewed Elyse Aldrich's medical care. In reviewing her chart, it seems that she has some severe elevated pressures in [employer] while the patient's vitals were actually being entered in [facility]S (suspect that these numbers are not pertaining to this patient). I have addressed this with the nursing staff this morning to try to correct, but right now again the blood pressure is better currently in [employer] for this patient. Do not seem to be her's from December 14 from 1317, 1338, 1410, and 1537, as the patient's vitals were not in this system but were actually in another (QS). Currently, her blood pressures are 120s over 70s. Once again, this is a quick note acknowledging blood pressures from [employer] over the dates and times noted which may have been entered incorrectly on the wrong patient. Job ID: [id number]
[2019-12-16 09:22] VITALS: BP 119/65; TEMP 98.7
[2019-12-16] MEDS: Enoxaparin Sodium 40 MG/0.4 ML SYRINGE SC SCH (09:54)
[2019-12-16] MEDS: NIFEdipine XL 30 MG TAB PO SCH (09:54)
[2019-12-16] MEDS: Cephalexin 250 MG CAP PO SCH (09:55)
== END 2019-12-16 11:20 | disposition home or self-care (01) | DRG 776 ==
LOC: L&D/OP 12:25 → L&D 20:29 → 3SW 12-15 15:23
PROVIDERS: ADMIT Family Medicine; ATTEND Family Medicine
DX: O13.5 Gestational [pregnancy-induced] hypertension without significant proteinuria, complicating the puerperium (principal); Z86.711 Personal history of pulmonary embolism; Z79.01 Long term (current) use of anticoagulants; Z88.6 Allergy status to analgesic agent
CPT/HCPCS: 36415; 51702; 70450; 80053; 80306; 82533; 83735; 84156; 84550; 85025; 85384; 85610; 85730; 93970; 99285; J0360; J0595; J1200; J1650; J2405; J3475; J7070

== ENCOUNTER 2020-03-01 08:14 | Emergency (ER) | payer OTHER ==
[2020-03-01 08:57] LABS: #Eosinphils 0.1 thou/uL (0.0-0.7); #Lymphocytes 2.2 thou/uL (1.20-3.40); #Monocytes 0.7 thou/uL (0.11-0.59); #Neutrophils 5.9 thou/uL (1.40-6.50); %Basophils 0.4 % (0.0-1.0); %Eosinophils 1.4 % (0.0-10.0); %Lymphocytes 24.7 % (21.0-51.0); %Monocytes 8.2 % (0.0-10.0); %Neutrophils 65.4 % (42.0-75.0); Hemoglobin 12.7 g/dL (12.0-16.0); Mean Corpuscular HGB CONC 32.9 g/dL (32.0-36.0); Mean Corpuscular Hemoglobin 27.1 pg (27.0-31.0); Mean Corpuscular Volume 82.3 fL (78.0-98.0); Mean Platelet Volume 7.5 fL (7.4-10.4); Platelet Count 253 thou/uL (130-400); RBC Distribution Width 16.3 % (11.5-14.5); Red Blood Cell (RBC) Count 4.71 mill/uL (4.20-5.40)
[2020-03-01] MEDS ORDERED: Morphine 4 MG/ML VIAL ONE (08:57)
[2020-03-01] MEDS ORDERED: Ondansetron PF 4 MG/2 ML Vial ONE ×2 (08:57→12:15)
--- NOTE | 2020-03-01 09:07 | RAD ---
EXAM: CHEST ONE VIEW HISTORY: Chest pain, abdominal pain, and diarrhea. COMPARISON: 01/26/2019 FINDINGS: The cardiac silhouette and pulmonary vasculature is within normal limits. The lungs are clear. The os seous structures are intact. No interval change from prior study. IMPRESSION: No acute cardiopulmonary process.
[2020-03-01] MEDS ORDERED: Iopamidol 370 76% 50 ML VIAL FS ONE (09:15)
[2020-03-01 09:24] LABS: ALT (SGPT) 10 U/L (8-55); AST (SGOT) 12 U/L (5-34); Albumin 4.1 g/dL (3.5-5.0); Alkaline Phosphatase 89 U/L (40-110); Anion Gap 12 mmol/L (10-20); BUN (Urea Nitrogen) 11 mg/dL (7.0-18.7); Bilirubin, Total 0.2 mg/dL (0.2-1.2); Calc. Creatinine Clearance 0 mL/min (70-130); Carbon Dioxide 17 mmol/L (22-29); Chloride 112 mmol/L (98-107); Estimated GFR-MDRD 81; Globulin 3.1 g/dL (2.4-3.5); Glucose 81 mg/dL (70-105); Lipase 114 U/L (8-78); Magnesium 1.8 mg/dL (1.6-2.6); Potassium 4.3 mmol/L (3.5-5.1); Protein, Total 7.2 g/dL (6.0-8.3); Sodium 137 mmol/L (136-145)
[2020-03-01] MEDS ORDERED: diphenhydrAMINE 50 MG/ML VIAL ONE (09:38)
[2020-03-01 09:43] LABS: Bacteria/HPF None Seen HPF (None Seen); Bilirubin Negative (Negative); Blood, Urine Trace (Negative); Clarity Clear (Clear); Glucose, Urine (Dipstick) Normal (Negative); Leukocyte Negative Leu/uL (Negative); Nitrite Negative (Negative); Protein, Urine (Dipstick) Negative (Neg-Trace); RBC/HPF 0-3 HPF (0-3); Squamous Epithelial 0-3 HPF (0-3); Urobilinogen Normal mg/dL (Less than 2); WBC/HPF 0-3 HPF (0-3)
[2020-03-01 09:44] LABS: Pregnancy Test - Urine (BHCG) Negative (Negative); Specific Gravity 1.014 (1.002-1.036)
[2020-03-01 09:45] LABS: Pregu Control Background? CLEAR/WHITE (CLR/WHITE); Pregu Control Bar Appear? YES (CONTROL BAR)
--- NOTE | 2020-03-01 10:30 | CT ---
CT ABDOMEN AND PELVIS WITH IV CONTRAST: HISTORY: Abdominal pain. COMPARISON: 01/26/2019. FINDINGS: Lung bases are clear. The patient is post cholecystectomy. The liver, pancreas, adrenal glands, and kidneys are normal. There is borderline splenomegaly measuring 13.4 cm. Uterus and ovaries are pre sent. No free air or free fluid or lymphadenopathy is seen in the abdomen or pelvis. Uterus and ova zenaida are present. The small bowel loops are not abnormally dilated. There is thickening of a segmen t of loop of jejunum in the left upper quadrant measuring about 1 cm in thickness. There is fluid in the colon and rectum. A small hiatal hernia is present. IMPRESSION: 1. Small hiatal hernia. 2. Borderline splenomegaly. 3. Segmental wall thickening of loop of jejunum in the left upper quadrant without evidence of high- grade small bowel obstruction. This is a nonspecific finding and may be due to inflammation, infecti on, infiltrative or neoplastic disorders. POS: [facility]
[2020-03-01] MEDS ORDERED: Ketorolac Tromethamine 30 MG/ML VIAL ONE (10:56)
[2020-03-01] MEDS ORDERED: Acetaminophen/Codeine 30-300mg Tablet ONE (12:15)
== END 2020-03-01 13:06 | disposition home or self-care (01) ==
LOC: ERS 08:14
DX: K52.9 Noninfective gastroenteritis and colitis, unspecified (principal); K56.7 Ileus, unspecified; K85.90 Acute pancreatitis without necrosis or infection, unspecified; I10 Essential (primary) hypertension; Z86.711 Personal history of pulmonary embolism
CPT/HCPCS: 36415; 71045; 74177; 80053; 81003; 81015; 81025; 83690; 83735; 84484; 85025; 85379; 93005; 96361; 96374; 96375; 96376; J1200; J1885; J2270; J2405; Q9967

== ENCOUNTER 2020-05-01 22:17 | Emergency (ER) | payer OTHER, SELFPAY ==
[2020-05-01] MEDS ORDERED: Ketorolac Tromethamine 30 MG/ML VIAL ONE (22:47)
--- NOTE | 2020-05-02 07:32 | RAD ---
SACRUM AND COCCYX: HISTORY: Buttock pain. Fall. COMPARISON: None. FINDINGS: Mild degenerative changes both SI joints. The sacrum is intact as well as the superior and inferior pubic rami. Similar configuration of the coccyx relative to CT 01/26/2019. IMPRESSION: No acute osseous abnormality. POS: [facility]
== END 2020-05-01 23:45 | disposition home or self-care (01) ==
LOC: ERS 22:17
DX: S30.0XXA Contusion of lower back and pelvis, initial encounter (principal); I10 Essential (primary) hypertension; Z86.711 Personal history of pulmonary embolism; W01.0XXA Fall on same level from slipping, tripping and stumbling without subsequent striking against object, initial encounter
CPT/HCPCS: 72220; 96372; J1885

== ENCOUNTER 2020-05-10 18:47 | Emergency (ER) | payer SELFPAY ==
[2020-05-10 19:25] LABS: Bilirubin Negative (Negative); Blood, Urine Negative (Negative); Clarity Clear (Clear); Glucose, Urine (Dipstick) Normal (Negative); Leukocyte Negative Leu/uL (Negative); Nitrite Negative (Negative); Protein, Urine (Dipstick) 10 mg/dL (Neg-Trace); Urobilinogen Normal mg/dL (Less than 2)
[2020-05-10] MEDS ORDERED: Ketorolac Tromethamine 30 MG/ML VIAL ONE (19:37)
== END 2020-05-10 20:08 | disposition home or self-care (01) ==
LOC: ERS 18:47
DX: S30.0XXA Contusion of lower back and pelvis, initial encounter (principal); I10 Essential (primary) hypertension; X50.1XXA Overexertion from prolonged static or awkward postures, initial encounter; W19.XXXA Unspecified fall, initial encounter; Y93.E2 Activity, laundry
CPT/HCPCS: 81003; 96372; 99283; J1885

== ENCOUNTER 2020-10-12 23:09 | Emergency (ER) | payer SELFPAY ==
[2020-10-13] MEDS ORDERED: Acetaminophen 500 MG TAB ONE (02:16)
== END 2020-10-13 02:27 | disposition home or self-care (01) ==
LOC: ERS 23:09
DX: B34.9 Viral infection, unspecified (principal); I10 Essential (primary) hypertension
CPT/HCPCS: 99283

== ENCOUNTER 2020-12-23 19:19 | Emergency (ER) | payer SELFPAY ==
[2020-12-23] MEDS ORDERED: Acetaminophen 500 MG TAB ONE (21:40)
[2020-12-24 07:18] LABS: SARS-CoV-2 PCR by NAA Not Detected (NotDetected)
== END 2020-12-23 22:15 | disposition home or self-care (01) ==
LOC: ERS 19:19
DX: J06.9 Acute upper respiratory infection, unspecified (principal); Z20.822 Contact with and (suspected) exposure to COVID-19; I10 Essential (primary) hypertension; Z86.711 Personal history of pulmonary embolism
CPT/HCPCS: 87635; 87804; 99283; U0003; U0005

== ENCOUNTER 2021-02-05 14:06 | Emergency (ER) | payer SELFPAY ==
[2021-02-05 14:36] LABS: #Eosinphils 0.1 thou/uL (0.0-0.7); #Lymphocytes 1.7 thou/uL (1.20-3.40); #Monocytes 0.6 thou/uL (0.11-0.59); %Basophils 0.3 % (0.0-1.0); %Eosinophils 1.7 % (0.0-10.0); %Lymphocytes 22.9 % (21.0-51.0); %Monocytes 8.1 % (0.0-10.0); Hemoglobin 11.4 g/dL (12.0-16.0); Mean Corpuscular HGB CONC 33.1 g/dL (32.0-36.0); Mean Corpuscular Hemoglobin 27.5 pg (27.0-31.0); Mean Corpuscular Volume 83.1 fL (78.0-98.0); Mean Platelet Volume 6.7 fL (7.4-10.4); Platelet Count 268 thou/uL (130-400); RBC Distribution Width 14.6 % (11.5-14.5); Red Blood Cell (RBC) Count 4.14 mill/uL (4.20-5.40); White Blood Cell (WBC) Count 7.5 thou/uL (4.8-10.8)
[2021-02-05 15:12] LABS: ALT (SGPT) 14 U/L (8-55); AST (SGOT) 13 U/L (5-34); Albumin 3.8 g/dL (3.5-5.0); Alkaline Phosphatase 76 U/L (40-110); Anion Gap 13 mmol/L (10-20); BUN (Urea Nitrogen) 14 mg/dL (7.0-18.7); Bilirubin, Total 0.2 mg/dL (0.2-1.2); Calc. Creatinine Clearance 0 mL/min (70-130); Calcium 9.1 mg/dL (7.8-10.44); Carbon Dioxide 24 mmol/L (22-29); Chloride 105 mmol/L (98-107); Globulin 3.7 g/dL (2.4-3.5); Glucose 97 mg/dL (70-105); Potassium 3.7 mmol/L (3.5-5.1); Protein, Total 7.5 g/dL (6.0-8.3); Sodium 138 mmol/L (136-145)
== END 2021-02-05 15:38 | disposition left against medical advice (07) ==
LOC: ERS 14:06
DX: Z53.21 Procedure and treatment not carried out due to patient leaving prior to being seen by health care provider (principal)
CPT/HCPCS: 36415; 80053; 84484; 85025; 93005

== ENCOUNTER 2021-03-31 10:07 | Emergency (ER) | payer SELFPAY ==
[2021-03-31] MEDS ORDERED: Diazepam 5 MG TAB ONE (11:23)
[2021-03-31] MEDS ORDERED: Ketorolac Tromethamine 30 MG/ML VIAL ONE (11:23)
[2021-03-31] MEDS ORDERED: Dexamethasone 4 MG TAB ONE (11:23)
[2021-03-31] MEDS ORDERED: Morphine 4 MG/ML VIAL ONE (11:23)
== END 2021-03-31 11:50 | disposition home or self-care (01) ==
LOC: ERS 10:07
DX: M54.5 Low back pain (principal); I10 Essential (primary) hypertension
CPT/HCPCS: 96372; 99283; J1885; J2270; J8540

== ENCOUNTER 2021-05-07 11:33 | Emergency (ER) | payer SELFPAY ==
[~2021-05-07 11:33] MED LIST changes: -ISOVUE-370 76%-LOCM 1 ML ONE; +Iopamidol-370 76% 500 ML 1 ML ONE
[2021-05-07 12:32] LABS: #Eosinphils 0.2 thou/uL (0.0-0.7); #Monocytes 0.6 thou/uL (0.11-0.59); #Neutrophils 4.1 thou/uL (1.40-6.50); %Basophils 0.5 % (0.0-1.0); %Eosinophils 2.7 % (0.0-10.0); %Lymphocytes 17.6 % (21.0-51.0); %Monocytes 9.7 % (0.0-10.0); %Neutrophils 69.5 % (42.0-75.0); Hemoglobin 13.5 g/dL (12.0-16.0); Mean Corpuscular HGB CONC 32.1 g/dL (32.0-36.0); Mean Corpuscular Hemoglobin 26.6 pg (27.0-31.0); Mean Corpuscular Volume 82.8 fL (78.0-98.0); Platelet Count 286 thou/uL (130-400); RBC Distribution Width 13.9 % (11.5-14.5); Red Blood Cell (RBC) Count 5.06 mill/uL (4.20-5.40); White Blood Cell (WBC) Count 5.9 thou/uL (4.8-10.8)
[2021-05-07] MEDS ORDERED: Albuterol 200 PUFF (6.7GM INHALER) ONE (12:32)
[2021-05-07 12:59] LABS: ALT (SGPT) 10 U/L (8-55); AST (SGOT) 15 U/L (5-34); Albumin 4.4 g/dL (3.5-5.0); Alkaline Phosphatase 87 U/L (40-110); Anion Gap 15 mmol/L (10-20); BUN (Urea Nitrogen) 8 mg/dL (7.0-18.7); Bilirubin, Total 0.4 mg/dL (0.2-1.2); Calc. Creatinine Clearance 0 mL/min (70-130); Calcium 10.4 mg/dL (7.8-10.44); Carbon Dioxide 28 mmol/L (22-29); Chloride 98 mmol/L (98-107); Globulin 3.8 g/dL (2.4-3.5); Glucose 94 mg/dL (70-105); Potassium 3.6 mmol/L (3.5-5.1); Protein, Total 8.2 g/dL (6.0-8.3); Sodium 137 mmol/L (136-145)
[2021-05-07 13:05] LABS: BHCG - Serum Negative (NEGATIVE); Pregs Control Background? CLEAR/WHITE (CLR/WHITE); Pregs Control Bar Appear? YES (CONTROL BAR)
[2021-05-07] MEDS ORDERED: Ondansetron PF 4 MG/2 ML Vial ONE (14:09)
[2021-05-07] MEDS ORDERED: Dexamethasone 4 MG TAB ONE (15:27)
[2021-05-07 21:40] LABS: SARS-CoV-2 PCR by NAA Not Detected (NotDetected)
== END 2021-05-07 15:40 | disposition home or self-care (01) ==
LOC: ERS 11:33
DX: J18.9 Pneumonia, unspecified organism (principal); Z20.822 Contact with and (suspected) exposure to COVID-19; Z79.899 Other long term (current) drug therapy; I10 Essential (primary) hypertension
CPT/HCPCS: 36415; 71046; 71275; 80053; 84484; 84703; 85025; 85379; 93005; 96374; J2405; J8540; Q9967; U0003; U0005

== ENCOUNTER 2021-05-28 17:35 | Emergency (ER) | payer SELFPAY | END 2021-05-28 18:34 | disposition left against medical advice (07) | LOC: ERS 17:35 | DX: Z53.21 Procedure and treatment not carried out due to patient leaving prior to being seen by health care provider (principal) ==

== ENCOUNTER 2021-07-02 09:15 | Emergency (ER) | payer OTHER, MEDICAID ==
[2021-07-02] MEDS ORDERED: Dexamethasone 10 MG/ML VIAL ONE (09:53)
[2021-07-02] MEDS ORDERED: Diazepam 10 MG/2 ML SYRINGE ONE (10:45)
== END 2021-07-02 11:22 | disposition home or self-care (01) ==
LOC: ERS 09:15
DX: M46.1 Sacroiliitis, not elsewhere classified (principal); I10 Essential (primary) hypertension
CPT/HCPCS: 96372; 99283; J1100; J3360

== ENCOUNTER 2021-12-01 10:52 | Emergency (ER) | payer OTHER, MEDICAID ==
[2021-12-01 12:53] LABS: Bilirubin Negative (Negative); Blood, Urine Negative (Negative); Clarity Clear (Clear); Glucose, Urine (Dipstick) Normal (Negative); Ketone, Urine Negative (Negative); Leukocyte Negative Leu/uL (Negative); Nitrite Negative (Negative); Protein, Urine (Dipstick) Negative (Neg-Trace); Specific Gravity, Urine 1.011 (1.002-1.036); Urobilinogen Normal mg/dL (Less than 2); pH, Urine 5.5 (5.0-9.0)
[2021-12-01 12:54] LABS: Pregnancy Test - Urine (BHCG) Negative (Negative)
[2021-12-01 12:55] LABS: Pregu Control Background? CLEAR/WHITE (CLR/WHITE); Pregu Control Bar Appear? YES (CONTROL BAR); Specific Gravity 1.011 (1.002-1.036)
[2021-12-02 14:49] LABS: SARS-CoV-2 PCR by NAA DETECTED (NotDetected)
== END 2021-12-01 12:30 | disposition home or self-care (01) ==
LOC: ERS 10:52
DX: U07.1 COVID-19 (principal); M54.50 Low back pain, unspecified; J06.9 Acute upper respiratory infection, unspecified; W10.9XXA Fall (on) (from) unspecified stairs and steps, initial encounter; I10 Essential (primary) hypertension
CPT/HCPCS: 72100; 81003; 81025; U0003; U0005

== ENCOUNTER 2024-11-05 21:01 | Emergency (ER) | payer OTHER ==
[2024-11-06] MEDS ORDERED: predniSONE 20 MG TAB ONE (00:25)
== END 2024-11-06 00:49 | disposition home or self-care (01) ==
LOC: ERS 21:01
DX: J06.9 Acute upper respiratory infection, unspecified (principal); I10 Essential (primary) hypertension; Z86.711 Personal history of pulmonary embolism
CPT/HCPCS: 71046; 87428; J7512

== ENCOUNTER 2024-12-15 13:26 | Emergency (ER) | payer OTHER ==
[2024-12-15] MEDS ORDERED: Dexamethasone 10 MG/ML VIAL ONE (15:14)
[2024-12-15] MEDS ORDERED: Ondansetron PF 4 MG/2 ML Vial ONE (15:14)
[2024-12-15 15:17] LABS: BHCG - Serum Negative (NEGATIVE); Pregs Control Background? CLEAR/WHITE (CLR/WHITE); Pregs Control Bar Appear? YES (CONTROL BAR)
[2024-12-15 15:23] LABS: ALT (SGPT) 10 U/L (8-55); AST (SGOT) 12 U/L (5-34); Albumin 3.5 g/dL (3.5-5.0); Alkaline Phosphatase 99 U/L (40-110); Anion Gap 12 mmol/L (10-20); BUN (Urea Nitrogen) 10 mg/dL (7.0-18.7); Bilirubin, Total 0.4 mg/dL (0.2-1.2); Calc. Creatinine Clearance 0 mL/min (70-130); Calcium 8.9 mg/dL (7.8-10.44); Carbon Dioxide 27 mmol/L (22-29); Chloride 103 mmol/L (98-107); Estimated GFR 71; Globulin 4.9 g/dL (2.4-3.5); Glucose 153 mg/dL (70-105); Potassium 3.5 mmol/L (3.5-5.1); Protein, Total 8.4 g/dL (6.0-8.3); Sodium 138 mmol/L (136-145)
[2024-12-15 15:31] LABS: #Basophils 0.03 10x3/uL (0.0-0.2); #Eosinophils Less than 0.03 10x3/uL (0.0-0.7); %Basophils 0.3 % (0.0-1.0); %Eosinophils 0.1 % (0.0-10.0); %Lymphocytes 9.4 % (21.0-51.0); %Monocytes 4.4 % (0.0-10.0); %Neutrophils 85.5 % (42.0-75.0); Anisocytosis SLIGHT = 6-15 cells HPF (0-5); Hematocrit 33.1 % (36.0-47.0); Hemoglobin 10.2 g/dL (12.0-16.0); Mean Corpuscular HGB CONC 30.8 g/dL (32.0-36.0); Mean Corpuscular Hemoglobin 23.1 pg (27.0-31.0); Mean Corpuscular Volume 74.9 fL (78.0-98.0); Mean Platelet Volume 8.6 fL (7.4-10.4); Microcytosis SLIGHT = 6-15 cells HPF (0-5); Platelet Adequacy Comment Platelets Normal; Platelet Count 286 10x3/uL (130-400); RBC Distribution Width 16.4 % (11.5-14.5); Red Blood Cell (RBC) Count 4.42 mill/uL (4.20-5.40); Spherocytes SLIGHT = 1-5 cells HPF (None Seen)
[2024-12-15] MEDS ORDERED: Iopamidol-370 76% 500 ML MDV (1 ML CHARGE) ONE (15:38)
== END 2024-12-15 15:55 | disposition left against medical advice (07) ==
LOC: ERS 13:26
DX: R06.00 Dyspnea, unspecified (principal); R05.9 Cough, unspecified; I10 Essential (primary) hypertension
CPT/HCPCS: 36416; 71045; 71275; 80053; 83605; 84703; 85025; 87428; 93005; 96374; 96375; J1100; J2405; Q9967